=== PATIENT | female | born 1930 | race Caucasian/White ===

== ENCOUNTER 2020-05-27 23:20 | Emergency (ER) | payer BC, OTHER ==
[2020-05-27 23:33] VITALS: BMI 21.4
--- NOTE | 2020-05-27 23:59 | PDOC ---
History of Present Illness - General Chief Complaint: Altered Mental Status Stated Complaint: AMS Time Seen by Provider: 05/27/20 23:34 - History of Present Illness Initial Comments: 05/27/20 23:58 89 y/o F hx of dementia, MDD, HTN, RA presents to ED after fever this a.m with altered mental status. (apparently had fever to 101) no other complaints per facility([facility]) . Patient denies BOONE, vision change, palpitations, cough, wheezing, orthopena, PND, leg swelling/pain, CP, SOB, urinary complaints, hematuria, BPR, abdominal pain, diarrhea, constipation, lightheadedness, weakness, sensory changes. PMHx: as noted above ROS: as noted SHx: Denies Etoh, IVDA, tobacco use Allergies: NKDA ROS: GENERAL/CONSTITUTIONAL: No fever or chills. No weakness. HEAD, EYES, EARS, NOSE AND THROAT: No change in vision. No ear pain or discharge. No sore throat. CARDIOVASCULAR: No chest pain or shortness of breath RESPIRATORY: No cough, wheezing, or hemoptysis. GASTROINTESTINAL: No nausea, vomiting, diarrhea or constipation. GENITOURINARY: No dysuria, frequency, or change in urination. MUSCULOSKELETAL: No joint or muscle swelling or pain. No neck or back pain. SKIN: No rash NEUROLOGIC: No headache, vertigo, loss of consciousness, or change in strength/sensation. ENDOCRINE: No increased thirst. No abnormal weight change HEMATOLOGIC/LYMPHATIC: No anemia, easy bleeding, or history of blood clots. ALLERGIC/IMMUNOLOGIC: No hives or skin allergy. PE: GENERAL: AO x [address] HEAD: No signs of trauma, normocephalic, atraumatic EYES: PERRLA, EOMI, sclera anicteric, conjunctiva clear ENT: Auricles normal inspection, hearing grossly normal, nares patent, oropharynx clear without exudates. Moist mucosa NECK: Normal ROM, supple, no lymphadenopathy, JVD, or masses LUNGS: No distress, speaks full sentences, bibasilar crackles (faint) HEART: Regular rate and rhythm, normal S1 and S2, no murmurs, rubs or gallops, peripheral pulses normal and equal bilaterally. ABDOMEN: Soft, nontender, normoactive bowel sounds. mildly distended. No guarding, no rebound. No masses EXTREMITIES : Normal inspection, Normal range of motion, no edema. No clubbing or cyanosis NEUROLOGICAL: Cranial nerves II through XII grossly intact. Normal speech, normal gait, no focal sensorimotor deficits SKIN: Warm, Dry, normal turgor, no rashes or lesions noted 05/28/20 00:18 07/08/20 13:00 Past History - Medical History Allergies/Adverse Reactions: Allergies Allergy/AdvReac Type Severity Reaction Status Date / Time No Known Drug Allergies Allergy Verified 05/27/20 23:31 Home Medications: Ambulatory Orders Acetaminophen [Tylenol] 650 mg PO DAILY 06/19/14 Amino Acids/Mv,Fe,Other Min [Ocuvite Extra Tablet] 1 each PO DAILY 06/19/14 Folic Acid - 2 mg PO DAILY 06/19/14 Gabapentin 100 mg PO QID 06/19/14 Methotrexate Sodium [Methotrexate] 7.5 mg PO BID 06/19/14 Metoprolol Succinate [Toprol XL -] 25 mg PO DAILY 06/19/14 Aspirin [Aspirin EC] 81 mg PO DAILY #0 07/03/14 Azithromycin [Zithromax] 500 mg PO DAILY 05/28/20 Mirtazapine [Remeron -] 15 mg PO DAILY 05/28/20 Anemia: No Asthma: No Cancer: No Cardiac Disorders: No CVA: No COPD: No CHF: No Dementia: No Diabetes: No GI Disorders: Yes (DIVERTICULOSIS) Disorders: No HTN: Yes Hypercholesterolemia: No (BORDERLINE) Liver Disease: No Seizures: No Thyroid Disease: No - Surgical History Abdominal Surgery: Yes (EMERGENCY SURGERY FOR RUPTURED DIVERTICULUM 1975) Appendectomy: No Cardiac Surgery: No Cholecystectomy: No Lung Surgery: No Neurologic Surgery: No Orthopedic Surgery: Yes - Psycho-Social/Smoking History Smoking History: Never smoked Have you smoked in the past 12 months: No Information on smoking cessation initiated: No - Substance Abuse Hx (Audit-C & DAST Scrn) How often the patient has a drink containing alcohol: Never Score: In Men: 4 or > Positive; In Women: 3 or > Positive: 0 Screen Result (Pos requires Nsg. Audit-10AR): Negative In the last yr the pt used illegal drug/Rx for NonMed reason: No Score: Yes response is considered Positive: 0 Screen Result (Positive result requires Nsg. DAST-10): Negative *Physical Exam - Vital Signs Last Vital Signs Temp Pulse Resp BP Pulse Ox 97.3 F L 61 14 146/65 98 05/27/20 23:27 05/27/20 23:27 05/27/20 23:27 05/27/20 23:27 05/27/20 23:27 ED Treatment Course - LABORATORY CBC & Chemistry Diagram: 05/27/20 23:55 05/27/20 23:55 - RADIOLOGY Radiology Studies Ordered: Category Date Time Status CHEST X-RAY PORTABLE* [RAD] Stat Radiology 05/27/20 23:48 Ordered Medical Decision Making - Medical Decision Making 05/27/20 23:59 89 y/o F hx of dementia, MDD, HTN, RA presents to ED after fever this a.m with altered mental status. (apparently had fever to 101) no other complaints per facility([facility]) . fever in a. m of unknown etiology + AMS infectious workup. (labs, cxr, ua) ddx: pneumonia vs uti vs sepsis vitals wnl, no fever or acute distress 05/28/20 00:[address] Good 07/08/20 13:03 Discharge - Discharge Information Problems reviewed: Yes Clinical Impression/Diagnosis: UTI (urinary tract infection) Qualifiers: Urinary tract infection type: acute cystitis Hematuria presence: without hematuria Qualified Code(s): N30.00 - Acute cystitis without hematuria Condition: Improved Disposition: HOME - Follow up/Referral Referrals: Patrick Barriga MD [Primary Care Provider] - - Patient Discharge Instructions Additional Instructions: You have a urine infection. You do not have any evidence of lung infection or stroke on CT, XR, and lab workup Take Keflex 500mg Q6H for 5 days. Follow up with your primary care doctor - Post Discharge Activity
--- NOTE | 2020-05-28 00:16 | PDOC ---
*Physical Exam - Vital Signs Last Vital Signs Temp Pulse Resp BP Pulse Ox 97.3 F L 61 14 146/65 98 05/27/20 23:27 05/27/20 23:27 05/27/20 23:27 05/27/20 23:27 05/27/20 23:27 ED Treatment Course - LABORATORY CBC & Chemistry Diagram: 05/27/20 23:55 05/27/20 23:55 Medical Decision Making - Medical Decision Making 05/28/20 00:15 Signed out from day team EKG - NSR, LVH, HR 63, QTc 417, no ST changes CXR - clear lung gary Head CT - no acute pathology, possible chronic sinusitis --- 89yF w PMHx dementia, HTN, rheumatoid arthritis presenting from [facility] w brief episode of confusion, fever 101 this morning. NH wants to r/o CVA vs PR vs sepsis On re-eval, pt is AOx2 (not to time), denies any constitutional symptoms. Has UTI. Low concern for CVA (no focal neuro deficits, neg CT) vs PNA (clear lungs) Rectal temp [address] 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 You do not have any evidence of lung infection or stroke on CT, XR, and lab workup Take Keflex 500mg Q6H for 5 days. Follow up with your primary care doctor - Post Discharge Activity
--- NOTE | 2020-05-28 00:34 | PDOC ---
Documentation entered by Arsen Simmons SCRIBE, acting as scribe for Zaynab Handy MD. Zaynab Handy MD: This documentation has been prepared by the Lupillo washburn Xhesika, SCRIBE, under my direction and personally reviewed by me in its entirety. I confirm that the documentation accurately reflects all work, treatment, procedures, and medical decision making performed by me. Attending Attestation - Resident Resident Name: Otoniel Garcia - ED Attending Attestation I have performed the following: I have examined & evaluated the patient, The case was reviewed & discussed with the resident, I agree w/resident's findings & plan, Exceptions are as noted - HPI HPI: 05/27/20 23:42 The patient is a 89y/o F with a PMH of dementia, HTN, RA, major depressive disorder who presents to the ED BIBA from [facility] for AMS. Per NH reports, pt had fever earlier during the day and is aao x1 at baseline. Per reports, patient is DNR. Allergies: NKDA PCP: Dr. Barriga - Physicial Exam PE: 05/27/20 23:52 frail appearing 89 yo female BIB[facility] from [facility] for [facility]MS head ncat eyes eomi neck supple lungs no wheezing cvs [id number] abdomen distended skin warm and dry extremities no pitting edema neuro alert and conversant but very poor historian 05/28/20 00:29 - Medical Decision Making 05/28/20 00:33 plan r/o infection with UA, cxr, , will also do cardiac profile ,ekg,ct head Discharge - Discharge Information Problems reviewed: Yes Clinical Impression/Diagnosis: UTI (urinary tract infection) Qualifiers: Urinary tract infection type: acute cystitis Hematuria presence: without he maturia Qualified Code(s): N30.00 - Acute cystitis without hematuria Condition: Improved Disposition: HOME - Follow up/Referral Referrals: Patrick Barriga MD [Primary Care Provider] - - Patient Discharge Instructions Additional Instructions: You have a urine infection. You do not have any evidence of lung infection or stroke on CT, XR, and lab workup Take Keflex 500mg Q6H for 5 days. Follow up with your primary care doctor - Post Discharge Activity
[2020-05-28 00:52] LABS: BASO % 0.4 % (0-2.0); EOS % 1.2 % (0-4.5); HEMATOCRIT 33.5 % (32.4-45.2); LYMPH % 16.3 % (8-40); MCH 32.9 pg (25.7-33.7); MCHC 32.9 g/dl (32.0-36.0); MEAN PLT VOLUME 8.6 fl (7.5-11.1); MONO % 12.5 % (3.8-10.2); NEUT % 69.6 % (42.8-82.8); PLATELET COUNT 219 K/MM3 (134-434); RBC 3.35 M/mm3 (3.60-5.2); RDW 15.3 % (11.6-15.6); WHITE BLOOD COUNT 7.3 K/mm3 (4.0-10.0)
[2020-05-28 01:06] LABS: INR 1.02 (0.83-1.09)
[2020-05-28 01:09] LABS: ACTIVATED PTT 31.1 SECONDS (25.2-36.5)
[2020-05-28 01:17] LABS: ALBUMIN 3.3 g/dl (3.4-5.0); ALK PHOS 154 U/L (45-117); ANION GAP 5 MMOL/L (8-16); BILIRUBIN,TOTAL 0.5 mg/dL (0.2-1); BLOOD UREA NITROGEN 30.8 mg/dL (7-18); CALCIUM 8.9 mg/dL (8.5-10.1); CHLORIDE 107 mmol/L (98-107); CO2 29 mmol/L (21-32); CREATININE 0.8 mg/dL (0.55-1.3); GLUCOSE,RANDOM 95 mg/dL (74-106); POTASSIUM 4.3 mmol/L (3.5-5.1); SGOT/AST 22 U/L (15-37); SGPT/ALT 21 U/L (13-61); SODIUM 140 mmol/L (136-145); TOT PROT 7.1 g/dl (6.4-8.2)
[2020-05-28 03:43] LABS: EPI CELLS 4 /uL (0-25.1); HYALINE CASTS 3 /uL (0-3.1); URINE APPEARANCE CLEAR; URINE BACTERIA 364 /uL (0-1359); URINE BILIRUBIN NEGATIVE (NEGATIVE); URINE COLOR YELLOW; URINE GLUCOSE (UA) NEGATIVE (NEGATIVE); URINE KETONE NEGATIVE (NEGATIVE); URINE LEUK ESTERASE 2+ (NEGATIVE); URINE NITRITE NEGATIVE (NEGATIVE); URINE PROTEIN NEGATIVE (NEGATIVE); URINE RBC 19 /uL (0-23.9); URINE UROBILINOGEN 0.2 mg/dL (0.2-1.0); URINE WBC 251 /uL (0-25.8)
[2020-05-28 03:50] VITALS: PULSE 64
[2020-05-28] MEDS ORDERED: CEPHALEXIN MONOHYDRATE 500 MG CAPSULE (UD) PO ONE (04:05)
[2020-05-28] MEDS ORDERED: CEPHALEXIN MONOHYDRATE 500 MG CAPSULE (UD) ONE (04:50)
[2020-05-28 06:19] VITALS: BP 137/54; TEMP 99.2
--- NOTE | 2020-05-28 09:13 | EKG ---
Test Reason : Blood Pressure : / mmHG Vent. Rate : 063 BPM Atrial Rate : 063 BPM P-R Int : 144 ms QRS Dur : 096 ms QT Int : 408 ms P-R-T Axes : 033 -40 -11 degrees QTc Int : 417 ms NORMAL SINUS RHYTHM LEFT AXIS DEVIATION MINIMAL VOLTAGE CRITERIA FOR LVH, MAY BE NORMAL VARIANT NONSPECIFIC ST ABNORMALITY ABNORMAL ECG NO PREVIOUS ECGS AVAILABLE Confirmed by MD DANI, VIRGEN ([id number]) on 05/28/2020 9:13:31 AM Referred By: Confirmed By:VIRGEN LOUISE MD
== END 2020-05-28 06:19 | disposition home or self-care (01) ==
LOC: JER 23:20
DX: N30.00 Acute cystitis without hematuria (principal)
CPT/HCPCS: 36415; 70450-TC; 71045-TC-FY; 80053; 81003; 83605; 84484; 85025; 85610; 85730; 87040; 87086; 93005; 93010; 99285-25